=== PATIENT | male | born 1960 | race Caucasian/White ===

== ENCOUNTER → 2020-12-19 12:54 | Outpatient (CLI) | payer OTHER, SELFPAY ==
--- NOTE | 2020-12-19 | DI.CT.S_ITS ---
PROCEDURE: CT CHEST ABD PEL W CON INDICATIONS: Follicular lymphoma, unspecified, unspecified site TECHNIQUE: After the administration of oral and intravenous contrast, 5 mm thick sections acquired from the lung apices to the symphysis. 5 mm coronal and sagittal reformats were performed, with additional 7 mm coronal MIP reformats through the lungs. For radiation dose reduction, the following was used: automated exposure control, adjustment of mA and/or kV according to patient size. COMPARISON: Outside Facility, RG, CT THORAX/ ABD/ PELVIS WITH CONTRAST, 06/01/2020, 7:33. Outside Facility, RG, CT ABDOMEN/PELVIS WITH CONTRAST, 07/29/2019, 10:15. Outside Facility, RG, CT THORAX/ABDOMEN/PELVIS WITH CONTRAST, 06/11/2018, 14:00. FINDINGS: Image quality: Excellent. CHEST: Lungs and pleura: No acute airspace opacities. No pleural effusions or pneumothorax. Central and peripheral airways appear patent and normal in caliber. Mediastinum: Heart size is normal. No pericardial effusion. No mediastinal or hilar adenopathy by size criteria. Thoracic aorta and central pulmonary arteries are normal in size. Esophagus is normal in caliber. No hiatal hernia. Chest wall: No axillary or supraclavicular adenopathy by size criteria. Thyroid gland appears normal. ABDOMEN: Solid organs: Liver is normal in size and enhancement. Gallbladder appears normal . Biliary system is non dilated. Pancreas enhances normally. Spleen is normal in size and enhancement. No adrenal nodules. Kidneys demonstrate normal size and enhancement, without hydronephrosis. Peritoneum and bowel: Bowel loops demonstrate normal wall thickness and caliber. No free fluid or air. Nodes and vessels: No retroperitoneal or mesenteric enlarged adenopathy by size criteria is found. There is an increased number of small nodes within the small bowel mesentery, a pattern not previously clearly present, this is comprised of an increased number of small nodes but no pathologically enlarged nodes. This is best seen centered on series 2, image 78. . Aorta and inferior vena cava are normal in size. Miscellaneous: No ventral hernias. PELVIS: Genitourinary: Bladder wall thickness is normal. Miscellaneous: No inguinal hernias or adenopathy. Bones: No suspicious bony lesions. No vertebral body compression fractures. IMPRESSION: No enlarged nodes have developed but there is an increased number of small nodes within the small bowel mesentery at and to the left of midline at the mid abdomen level, seen on series 2, image 78. Immediately above and below this level a similar pattern is present, and the finding is worrisome for early manifestation of reactivation of lymphoma in that area. Follow-up in 6 months unless clinically indicated earlier would be recommended. Dictated by: Shahid Tse M.D. on 12/19/2020 at 16:55 Approved by: Shahid Tse M.D. on 12/19/2020 at 17:00
== END ==
PROVIDERS: PCP Family Medicine; Referring Provider Internal Medicine; Visit Provider Internal Medicine
DX: C82.90 Follicular lymphoma, unspecified, unspecified site (principal)
CPT/HCPCS: 71260; 74177

== ENCOUNTER → 2021-07-19 10:59 | Outpatient (CLI) | payer OTHER, SELFPAY ==
[2021-07-19 12:16] LABS: BUN Creatinine Ratio 17.2 (6-22); Blood Urea Nitrogen 16 mg/dL (9-20); Calcium 9.9 mg/dL (8.4-10.2); Carbon Dioxide 31 mmol/L (22-32); Chloride 102 mmol/L (98-107); Estimated Glomerular Filt Rate > 60.0 mL/min (>60); Glucose 93 mg/dL (80-110); HEMOLYSIS < 15 (0-50); Potassium 4.6 mmol/L (3.4-5.1); Sodium 139 mmol/L (137-145)
== END ==
PROVIDERS: PCP Family Medicine; Referring Provider Internal Medicine; Visit Provider Internal Medicine
DX: C82.90 Follicular lymphoma, unspecified, unspecified site (principal)
CPT/HCPCS: 36415; 80048

== ENCOUNTER → 2021-07-22 10:00 | Outpatient (CLI) | payer OTHER, SELFPAY ==
--- NOTE | 2021-07-22 | DI.CT.S_ITS ---
PROCEDURE: CT CHEST ABD PEL W CON INDICATIONS: Follicular lymphoma, unspecified, intra-abdominal TECHNIQUE: After the administration of oral and intravenous contrast, axial sections acquired from the supraclavicular neck to the pubic symphysis. Coronal and sagittal reformats were performed. For radiation dose reduction, the following was used: automated exposure control, adjustment of mA and/or kV according to patient size. COMPARISON: Outside Facility, RG, CT THORAX/ABDOMEN/PELVIS WITH CONTRAST, 06/11/2018, 14:00. [facility], CT, CT CHEST ABD PEL W CON, 12/19/2020, 14:01. FINDINGS: CHEST: Lungs: Scattered subsegmental atelectasis and/or scarring. No focal consolidation. 5 mm pulmonary nodule seen in the right middle lobe is unchanged since 06/11/18 therefore benign. Pleura: No pleural effusions or pneumothorax. Heart: Heart size is normal. No pericardial effusion. Mild coronary artery calcification. Chest nodes: Normal. Thyroid gland: Negative. Aorta: Normal in size. Pulmonary arteries: Unremarkable. Esophagus: Normal. ABDOMEN: Liver: 1 cm or less hepatic hypodensities seen in the left lobe are grossly unchanged since 06/11/18 probably hemangioma/cysts. There is hepatic steatosis. Gallbladder: Negative. Bile ducts: Normal. Pancreas: Normal. Spleen: Normal. Adrenals: Normal. Kidneys and ureters: Normal. Stomach and duodenum: Normal. Bowel: Moderate stool Other: No free fluid or air. Abdominal nodes: There are numerous scattered mesenteric lymph nodes and mild adjacent inflammatory stranding. Overall, no interval change/progression. Shotty retroperitoneal lymph nodes are also grossly unchanged. Aorta and IVC: Normal in size. Ventral wall: Normal. PELVIS: Bladder: Normal. Inguinal region: Small fat containing left inguinal hernia. Pelvic nodes: Normal. Bones: No suspicious bony lesions. No vertebral body compression fractures. IMPRESSION: Overall, grossly unchanged examination without specific evidence of active metastatic disease. Dictated by: Librado Persaud M.D. on 07/22/2021 at 11:23 Approved by: Librado Persaud M.D. on 07/22/2021 at 11:35
== END ==
PROVIDERS: PCP Family Medicine; Referring Provider Internal Medicine; Visit Provider Internal Medicine
DX: C82.93 Follicular lymphoma, unspecified, intra-abdominal lymph nodes (principal); K40.90 Unilateral inguinal hernia, without obstruction or gangrene, not specified as recurrent
CPT/HCPCS: 71260; 74177

== ENCOUNTER → 2022-06-25 12:15 | Outpatient (CLI) | payer OTHER, SELFPAY ==
[2022-06-25 13:21] LABS: Add Manual Diff / Slide Review NO; Basophils Absolute Auto 100 /uL (0-100); Basophils Percent Auto 1.3 % (0-2); Eosinophils Absolute Auto 200 /uL (0-450); Eosinophils Percent Auto 4.1 % (2-4); Hematocrit 46.1 % (41-53); Hemoglobin 15.7 g/dL (13.5-17.5); Lymphocytes Absolute Auto 1400 /uL (1100-4500); Lymphocytes Percent Auto 24.2 % (25-40); Mean Corpuscular Hemoglobin 29.7 PG (26-34); Mean Corpuscular Volume 87.2 fL (80-100); Monocytes Absolute Auto 400 /uL (0-900); Monocytes Percent Auto 7.1 % (3-14); Neutrophils Absolute Auto 3700 /uL (1500-7000); Neutrophils Percent Auto 63.3 % (50-75); Platelet Count 269 X10^3/uL (150-400); Red Blood Cell Count 5.29 X10^6/uL (4.5-5.9); Red Cell Distribution Width 12.9 % (11.6-14.8); White Blood Cell Count 5.8 X10^3/uL (4.5-11.0)
[2022-06-25 13:52] LABS: Alanine Aminotransferase 23 IU/L (<50); Albumin 4.6 g/dL (3.5-5.0); Albumin Globulin Ratio 1.6 (1.0-2.8); Alkaline Phosphatase 54 U/L (38-126); Aspartate Aminotransferase 34 IU/L (17-59); BUN Creatinine Ratio 13.4 (6-22); Bilirubin Total 1.1 mg/dL (0.2-1.3); Blood Urea Nitrogen 13 mg/dL (9-20); Calcium 9.3 mg/dL (8.4-10.2); Carbon Dioxide 31 mmol/L (22-32); Chloride 100 mmol/L (98-107); Cholesterol 132 mg/dL (140-199); Estimated Glomerular Filt Rate > 60 mL/min (>60); Globulin 2.8 g/dL (1.7-4.1); Glucose 93 mg/dL (80-110); HDL Cholesterol 45 mg/dL (40-60); HEMOLYSIS < 15 (0-50); LDL Cholesterol Calculated 60 mg/dL (<100); Potassium 4.4 mmol/L (3.4-5.1); Sodium 137 mmol/L (137-145); Total Protein 7.4 g/dL (6.3-8.2); Triglycerides 135 mg/dL (35-150)
[2022-06-25 14:20] LABS: Prostate Specific Antigen Scrn 6.84 ng/mL (0.1-4.0)
== END ==
PROVIDERS: PCP Family Medicine; Referring Provider Family Medicine; Visit Provider Family Medicine
DX: Z13.9 Encounter for screening, unspecified (principal); Z12.5 Encounter for screening for malignant neoplasm of prostate
CPT/HCPCS: 36415; 80053; 80061; 85025; G0103

== ENCOUNTER → 2022-08-13 13:21 | Outpatient (CLI) | payer OTHER, SELFPAY ==
--- NOTE | 2022-08-13 13:25 | DI.CT.S_ITS ---
PROCEDURE: CT CHEST ABD PEL W CON INDICATIONS: Follicular lymphoma grade I, lymph nodes TECHNIQUE: After the administration of oral and intravenous contrast, axial sections acquired from the supraclavicular neck to the pubic symphysis. Coronal and sagittal reformats were performed. For radiation dose reduction, the following was used: automated exposure control, adjustment of mA and/or kV according to patient size. COMPARISON: [facility], CT, CT CHEST ABD PEL W CON, 07/22/2021, 11:02. FINDINGS: Image quality: Excellent Lungs and pleura: Scattered scarring and atelectasis. No pleural effusions. Small pulmonary nodules are stable. None appear to be new or enlarging. Mediastinum, heart, and esophagus: Nonspecific distal esophageal wall thickening. No adenopathy. No thoracic aortic aneurysm. Heart size is at the upper limit of normal. Coronary calcifications. Chest wall and thyroid: Unremarkable Solid organs: Subcentimeter lesions are too small to characterize. These are stable left lobe hepatic cysts. Gallbladder is unremarkable. There is a duodenal diverticulum adjacent to the ampulla. No biliary ductal dilation. Pancreas, spleen, adrenals are unremarkable. No hydronephrosis. Vessels and lymph nodes: The main portal vein is patent. No abdominal aortic aneurysm. There are mildly enlarged retroperitoneal and mesenteric root lymph nodes, for example axial image 86 measuring 9 mm, previously 9 mm. Left periaortic node on axial image 75 measures 7 mm. This previously measured 8 mm. Bowel and peritoneum: Overall stable degree of stranding in the mesenteric root. No pathologic ascites. No bowel obstruction. Moderate colorectal stool burden. Body wall: Fat containing umbilical and periumbilical hernia. Pelvis: Not well evaluated. Heterogeneous mildly enlarged prostate. Bladder is mildly distended. Bones: No acute or suspicious osseous abnormality. There are degenerative changes and prior posterior decompression. IMPRESSION: Borderline enlarged mesenteric root and retroperitoneal lymph nodes are probably stable compared to 07/22/2021. Mesenteric nodes are difficult to compare due to changes in position and mobility. Follow-up imaging is recommended. PET-CT could assess metabolic activity if needed. No definite new or enlarging lesion. Other incidental/stable findings above. Dictated by: Eder Jain M.D. on 08/13/2022 at 16:28 Approved by: Eder Jain M.D. on 08/13/2022 at 16:39
[2022-08-13 14:01] LABS: Estimated Glomerular Filt Rate > 60 mL/min (>60)
== END ==
PROVIDERS: Family Medicine; PCP Family Medicine; Referring Provider Internal Medicine; Visit Provider Internal Medicine
DX: C82.08 Follicular lymphoma grade I, lymph nodes of multiple sites (principal); R97.20 Elevated prostate specific antigen [PSA]
CPT/HCPCS: 36415; 71260; 74177; 82565; Q9967

== ENCOUNTER → 2023-05-25 07:45 | Outpatient (CLI) | payer OTHER, SELFPAY ==
--- NOTE | 2023-05-25 | DI.CT.S_ITS ---
PROCEDURE: CT CHEST ABD PEL W CON INDICATIONS: Follicular lymphoma grade I, lymph nodes TECHNIQUE: After the administration of oral and intravenous contrast, axial sections acquired from the supraclavicular neck to the pubic symphysis. Coronal and sagittal reformats were performed. For radiation dose reduction, the following was used: automated exposure control, adjustment of mA and/or kV according to patient size. COMPARISON: [facility], CT, CT CHEST ABD PEL W CON, 08/13/2022, 15:13. [facility], CT, CT CHEST ABD PEL W CON, 07/22/2021, 11:02. FINDINGS: Image quality: Good Lungs and pleura: No dense consolidation. Mild dependent atelectasis. No pleural effusions. No new or enlarging pulmonary nodules. Mediastinum, heart, and esophagus: No hiatal hernia. Normal heart size. There are coronary calcifications. No pathologic lymph nodes by size criteria. Chest wall and thyroid: Unremarkable Solid organs: There are liver cysts. Subcentimeter lesions are too small to characterize, unchanged Gallbladder is unremarkable. No pathologic dilation of the biliary tree or pancreatic duct. No splenomegaly. No adrenal nodules. No hydronephrosis. Vessels and lymph nodes: Overall similar degree of mesenteric root fat stranding and borderline enlarged lymph nodes. For example lymph node at the level of the aortic bifurcation at the mesenteric root on axial image 89 measures 8 mm, previously 8-9 mm. Left periaortic node on axial image 78 measures 8-9 mm, previously 7-8 mm. No abdominal aortic aneurysm. Bowel and peritoneum: Moderate fecal loading. No pathologic ascites or bowel obstruction. Prominent appendix again seen, without surrounding inflammation. Body wall: Unremarkable Pelvis: Bladder is unremarkable. Heterogeneous enlarged prostate again seen, not well assessed on CT. Bones: Degenerative changes, no acute or suspicious finding. IMPRESSION: Stable prominent retroperitoneal and mesenteric root lymph nodes and mesenteric root fat stranding. No significant changes compared to 2021 imaging. Stable and incidental findings above. Dictated by: Eder Jain M.D. on 05/25/2023 at 10:22 Approved by: Eder Jain M.D. on 05/25/2023 at 10:30
[2023-05-25 08:12] LABS: Estimated Glomerular Filt Rate > 60 mL/min (>60)
== END ==
PROVIDERS: Radiology Diagnostic Radiology; PCP Family Medicine; Referring Provider Internal Medicine; Visit Provider Internal Medicine
DX: C82.08 Follicular lymphoma grade I, lymph nodes of multiple sites (principal); K76.89 Other specified diseases of liver; I25.10 Atherosclerotic heart disease of native coronary artery without angina pectoris; N40.0 Benign prostatic hyperplasia without lower urinary tract symptoms
CPT/HCPCS: 36415; 71260; 74177; 82565; Q9967

== ENCOUNTER → 2023-09-25 14:36 | Outpatient (CLI) | payer OTHER, SELFPAY ==
--- NOTE | 2023-09-25 14:52 | DI.CT.S_ITS ---
PROCEDURE: CT ABDOMEN PELVIS W CON INDICATIONS: Abdominal pain and nausea. Prior partial colon resection due to follicular lymphoma. TECHNIQUE: After the administration of intravenous contrast, axial sections acquired from the lung bases to the pubic symphysis. Coronal and sagittal reformats were performed. For radiation dose reduction, the following was used: automated exposure control, adjustment of mA and/or kV according to patient size. COMPARISON: [facility], CT, CT CHEST ABD PEL W CON, 08/13/2022, 15:13. [facility], CT, CT CHEST ABD PEL W CON, 05/25/2023, 9:33. FINDINGS: Image quality: Excellent. Lung bases: Unremarkable. Heart: No significant findings. ABDOMEN: Liver: Unremarkable. Several water density left lateral hepatic segment cysts are again noted. Gallbladder: Unremarkable. Biliary ducts: Unremarkable. Pancreas: Unremarkable. Spleen: Unremarkable. Adrenal Glands: Unremarkable. Kidneys and Ureters: Unremarkable. Stomach and Bowel: Stomach, small bowel loops, and colon are unremarkable. Postsurgical change is noted at the left paramedian peritoneum consistent with the prior history of partial bowel resection. Several scattered small and mildly prominent lymph nodes are noted within the small bowel mesentery in this area, which have not appreciably changed from the comparison prior CT scanning 08/13/22 and 05/25/23. Peritoneum: No abnormal intraperitoneal fluid. No free air. Ventral Wall: No hernias. Abdominal Nodes: No retroperitoneal or mesenteric adenopathy by size criteria. Vessels: Aorta and inferior vena cava are normal in size. PELVIS: Pelvic Organs: Unremarkable. Bladder: Unremarkable. Pelvic Nodes: No enlarged lymph nodes. Miscellaneous: No hernias are seen. Normal appendix found right lower quadrant. Bones: Unremarkable. IMPRESSION: Several scattered slightly prominent lymph nodes are noted again within the small bowel mesentery near the area of enteric staple line indicating site of prior partial colectomy clinically reported. No enlarging lymph nodes in this area or elsewhere are found, with reference to the prior CT scanning from May of this year and July of last year. Normal appendix found right lower quadrant. Dictated by: Shahid Tse M.D. on 09/25/2023 at 16:38 Approved by: Shahid Tse M.D. on 09/25/2023 at 16:45
[2023-09-25 15:07] LABS: Add Manual Diff / Slide Review NO; Basophils Absolute Auto 100 /uL (0-100); Basophils Percent Auto 1.4 % (0-2); Eosinophils Absolute Auto 100 /uL (0-450); Eosinophils Percent Auto 1.8 % (2-4); Hematocrit 45.8 % (41-53); Hemoglobin 15.8 g/dL (13.5-17.5); Lymphocytes Absolute Auto 1400 /uL (1100-4500); Lymphocytes Percent Auto 24.7 % (25-40); Mean Corpuscular HGB Conc 34.5 % (30-36); Mean Corpuscular Hemoglobin 29.8 PG (26-34); Mean Corpuscular Volume 86.4 fL (80-100); Monocytes Absolute Auto 300 /uL (0-900); Monocytes Percent Auto 5.6 % (3-14); Neutrophils Absolute Auto 3800 /uL (1500-7000); Neutrophils Percent Auto 66.5 % (50-75); Platelet Count 261 X10^3/uL (150-400); Red Cell Distribution Width 13.3 % (11.6-14.8); White Blood Cell Count 5.8 X10^3/uL (4.5-11.0)
[2023-09-25 15:20] LABS: Estimated Glomerular Filt Rate > 60 mL/min (>60)
[2023-09-25 15:24] LABS: Alanine Aminotransferase 35 IU/L (<50); Albumin 4.8 g/dL (3.5-5.0); Albumin Globulin Ratio 1.5 (1.0-2.8); Alkaline Phosphatase 60 U/L (38-126); Aspartate Aminotransferase 41 IU/L (17-59); BUN Creatinine Ratio 10.3 (6-22); Bilirubin Total 1.4 mg/dL (0.2-1.3); Blood Urea Nitrogen 11 mg/dL (9-20); C-Reactive Protein Quant < 0.5 mg/dL (<1.0); Calcium 10.1 mg/dL (8.4-10.2); Carbon Dioxide 28 mmol/L (22-32); Chloride 100 mmol/L (98-107); Estimated Glomerular Filt Rate > 60 mL/min (>60); Globulin 3.2 g/dL (1.7-4.1); Glucose 102 mg/dL (80-110); HEMOLYSIS < 15 (0-50); Lipase 159 U/L (23-300); Potassium 4.4 mmol/L (3.4-5.1); Sodium 137 mmol/L (137-145)
== END ==
PROVIDERS: Family Medicine; Radiology Diagnostic Radiology; PCP Family Medicine; Referring Provider Family Medicine; Visit Provider Family Medicine
DX: K76.89 Other specified diseases of liver (principal); R10.9 Unspecified abdominal pain; R11.0 Nausea; Z90.49 Acquired absence of other specified parts of digestive tract
CPT/HCPCS: 36415; 74177; 80053; 82565; 83690; 85025; 86140